=== PATIENT | male | born 1985 | race African-American/Black ===

== ENCOUNTER 2016-10-07 17:19 | Emergency (ER) | payer OTHER ==
[~2016-10-07] VITALS: Ht 180.3 cm; Wt 93.0 kg
[2016-10-07 17:26] VITALS: BP 128/74
--- NOTE | 2016-10-07 18:03 | ED INFLUENZA/URI COMPLAINT ---
History of Present Illness General Chief Complaint: General Adult Stated Complaint: PT IS COUGHING AND HOARSEVOICE BRINGING UP STUFF Source: patient, family, old records Exam Limitations: no limitations Vital Signs & Intake/Output Vital Signs & Intake/Output Vital Signs Date Time Temp Pulse Resp B/P Pulse O2 O2 Flow FiO2 Ox Delivery Rate 10/07 1830 Room Air Room Air 10/07 1726 97.4 74 18 128/74 97 Room Air Allergies Coded Allergies: No Known Allergies (10/07/16) Reconcile Medications Azithromycin (Zithromax) 250 MG TABLET 1 DP PO AD bronchitis 2 the first day followed by 1 for days 2-5 Robitussin AC (Guaifenesin-Codeine Syrup) 200 MG-20 MG/10 ML LIQUID 10 ML PO Q6HR PRN COUGH Triage Note: PT COMPLAINS OF A COUGH OFF AND ON FOR WEEKS, STATES THAT EH HAS COUGH NOW PRODUCTIVE OF YELLOW SPUTUM, ALSO STATES THAT HE HAS HOARSE VOICE Triage Nurses Notes Reviewed? yes Onset: Gradual Duration: week(s): (3) Timing: recent history Severity: mild, moderate Severity Numbers: 5 Prior Episodes/Possible Cause: no prior episodes No Modifying Factors: none Associated Symptoms: HOARSE VOICE HPI: 31-year-old male with no medical history nonsmoker presents emergency room complaining of a productive cough of clear sputum associated with hoarse voice for the past 3 weeks. The patient has been using [id number] medications without improvement. He denies any shortness of breath rhinorrhea sore throat fever chills chest pain abdominal pain nausea vomiting or diarrhea. No sick contacts or recent travel. There are no modifying factors or associated symptoms otherwise. He has not sought care for the symptoms until today. No hemoptysis Past History Travel History Traveled to [place] past 21 day No Medical History Any Pertinent Medical History? none Neurological: NONE EENT: NONE Cardiovascular: NONE Respiratory: NONE Gastrointestinal: NONE Hepatic: NONE Renal: NONE Musculoskeletal: NONE Psychiatric: NONE Endocrine: NONE Blood Disorders: NONE [employer] TRUCK MOUNTED/Reproductive: NONE Surgical History Surgical History: none Psychosocial History What is your primary language Slovenian Tobacco Use: Never used ETOH Use: denies use Illicit Drug Use: denies illicit drug use Family History Hx Contributory? No Review of Systems Review of Systems Constitutional: Reports: see HPI. All Other Systems: Reviewed and Negative Comments Review of systems: See HPI, All other systems negative. Constitutional, no chills no fever, no malaise HEENT: no sore throat no congestion, no ear pain Cardiovascular: No chest pain , no palpitation , no orthopnea no ankle swelling Skin, no jaundice no rashes, no change in skin Respiratory: No dyspnea cough sputum no hemoptysis GI: No nausea no vomiting, no diarrhea, no bloating/constipation : No dysuria Muscle skeletal: No joint pain, no back pain, no neck pain, Neurologic: No numbness no headache Psych: No stress Heme/endocrine: No bruising no bleeding Immunology: No lymphadenopathy Physical Exam Physical Exam General Appearance: well developed/nourished, no apparent distress, alert, awake Ears, Nose, Throat: normal ENT inspection, moist mucous membrane, hearing grossly normal, Tympanic normal Comments: Well-developed well-nourished patient in no apparent distress. Head/Face: Atraumatic, no maxillary/frontal sinus tenderness, no facial swelling Eyes: PERRL, EOMI, no conjunctival injection Ear:External auditory canal and Tympanic membranes clear, no erythema, no FB. Nose: atraumatic.Normal inspection: No bleeding, no septal hematoma Throat: Moist mucous membranes.Pharynx normal. No pharyngeal erythema/exudate seen. No stridor/drooling or assymetry. No swelling or edema. Neck: Supple, no lymphadenopathy, FROM Back: FROM, Nontender Cardiovascular: Regular rate and rhythms no murmurs rubs Respiratory: Chest nontender.There were no bony deformities, no asymmetry. No respiratory distress. Patient speaking in full complete sentences. Breath sounds clear to auscultation bilaterally: NO W/R/R Extremities: full range of motion Neuro: Alert and oriented x3 Skin: Warm & dry;No appreciable rash on exposed skin Psych: Mood affect normal, normal memory normal judgment. Core Measures Severe Sepsis Present: No Septic Shock Present: No Progress Differential Diagnosis: influenza, pneumonia, pharyngitis, sinusitis, bronchitis URI Plan of Care: Orders Procedure Date/time Status XRY-CHEST XRAY, PA AND LATERAL 10/07 175 Active Discussed with patient his x-ray findings need for supportive care prescription for Z-Cody, Robitussin with codeine I discussed with the patient at length all of their results, need for close follow up with their primary care physician. This week. I answered all of their questions, they feel comfortable with the plan and follow-up care. I discussed the medications that they will receive with the patient. I gave them signs and symptoms that could indicate an adverse reaction. I have advised them to limit their activities until they can see how they respond to the medication. (ENA MYLES,CATY) Diagnostic Imaging: Viewed by Me: Radiology Read. Discussed w/RAD: Radiology Read. Radiology Impression: PATIENT: ANAYELI BYRNE PRESENT AGE: 31 PATIENT ACCOUNT NO: [id number] : 84 LOCATION: [facility] ORDERING PHYSICIAN: CATY MYLES SERVICE DATE: 10/07/16 EXAM TYPE: RAD - XRY-CHEST XRAY, PA AND LATERAL EXAMINATION: XR CHEST CLINICAL INFORMATION: Cough and shortness of breath COMPARISON: None TECHNIQUE: Frontal and lateral views of the chest FINDINGS: Heart size is normal. Pulmonary vascularity is normal. The lungs are normally expanded with no focal consolidation or atelectasis. There is no pneumothorax or pleural effusion. Visualized bony structures are unremarkable. IMPRESSION: Normally expanded and grossly clear lungs with no focal findings. DICTATED BY: MEDINA DE SANTIAGO MD DATE/TIME DICTATED:10/07/161899 RECORDS MANAGER:TD DATE/TIME TRANSCRIBED:10/07/161899 CONFIDENTIAL, DO NOT COPY WITHOUT APPROPRIATE AUTHORIZATION. <Electronically signed in Other Vendor System> SIGNED BY: MEDINA DE SANTIAGO MD 10/07/161904 Initial ED EKG: none Departure Departure Disposition: HOME OR SELF CARE Condition: Stable Clinical Impression Primary Impression: Bronchitis Referrals: PATIENT HAS NO PRIMARY CARE DR (PCP/Family) Additional Instructions: Myles-Cody as directed, Robitussin with codeine for cough. Use [id number] Mucinex follow-up with her primary care physician. Return to emergency room at anytime sooner with any concerns These prescriptions were sent to your pharmacy Departure Forms: Customer Survey General Discharge Information Prescriptions: Current Visit Scripts Azithromycin (Zithromax) 1 DP PO AD #6 TAB 2 the first day followed by 1 for days 2-5 Robitussin AC (Guaifenesin-Codeine Syrup) 10 ML PO Q6HR PRN COUGH #200 ML
[2016-10-07] MEDS ORDERED: GUAIFENESIN-COD10 ML PO (18:22)
[2016-10-07] MEDS ORDERED: ZITHROMAX250 M2 PO (18:22)
--- NOTE | 2016-10-07 19:05 | RADIOLOGY REPORT ---
EXAMINATION: XR CHEST CLINICAL INFORMATION: Cough and shortness of breath COMPARISON: None TECHNIQUE: Frontal and lateral views of the chest FINDINGS: Heart size is normal. Pulmonary vascularity is normal. The lungs are normally expanded with no focal consolidation or atelectasis. There is no pneumothorax or pleural effusion. Visualized bony structures are unremarkable. IMPRESSION: Normally expanded and grossly clear lungs with no focal findings.
== END 2016-10-07 18:33 ==
LOC: ERH 17:19
DX: J40 Bronchitis, not specified as acute or chronic (principal)